=== PATIENT | female | born 1965 | race African-American/Black ===

== ENCOUNTER 2017-12-25 09:41 | Inpatient (IN) | payer MEDICAID, OTHER ==
[~2017-12-25] VITALS: Ht 165.1 cm; Wt 83.5 kg
[2017-12-25] MEDS ORDERED: MAGNESIUM/ALUMINUM HYDROXIDE/SIMETHICONE 30ML UDC PO STA (10:11)
[2017-12-25] MEDS ORDERED: VISCOUS LIDOCAINE 2% 15 ML UDC PO STA (10:11)
[2017-12-25 12:04] LABS: BASOPHILS % 0.2 % (0.0-2.0); EOSINOPHILS % 0.4 % (0.0-5.0); HEMATOCRIT. 45.5 % (36.0-48.0); HEMOGLOBIN. 15.4 g/dL (12.0-16.0); LYMPHOCYTES % 23.1 % (20.0-50.0); MEAN CORPUSCULAR VOLUME 94.3 fL (81.0-99.0); MEAN PLATELET VOLUME 9.2 fl (7.4-10.4); MONOCYTES % 5.1 % (2.0-8.0); NEUTROPHILS % 71.2 % (40.0-76.0); PLATELET 218 x1000/uL (130-400); RED BLOOD CELL COUNT 4.83 mill/uL (4.2-5.4); RED CELL DISTRIBUTION WIDTH 14.5 % (11.6-14.6)
[2017-12-25 12:05] LABS: CLARITY URINE CLOUDY (CLEAR); COLOR URINE YELLOW (YELLOW); KETONES URINE NEGATIVE (NEGATIVE); LEUKOCYTE ESTERASE URINE NEGATIVE (NEGATIVE); NITRITE URINE NEGATIVE (NEGATIVE); OCCULT BLOOD URINE 3+ (NEGATIVE); PH URINE 7.5 (4.5-8.0); PROTEIN URINE 2+ (NEGATIVE); UROBILINOGEN URINE 0.2 E.U./dL (0.2-1.0)
[2017-12-25 12:15] LABS: CHLORIDE 109 mEq/L (98-107)
[2017-12-25 12:24] LABS: BG BASE EXCESS -7.7 mmol/L (-2.0-2.0); BG CARBOXYHEMOGLOBIN 4.4 % (0.5-1.5); BG DEOXYHEMOGLOBIN 5.1 % (0.0-5.0); BG HCO3 ACT 20.2 mmol/L (22.0-26.0); BG METHEMOGLOBIN 0.1 % (0.0-1.5); BG OXYGEN SATURATION 94.7 % (92.0-98.5); BG OXYHEMOGLOBIN 90.4 % (94.0-97.0); BG PCO2 49.9 mmHg (35.0-45.0); BG PH 7.225 (7.350-7.450); BG PO2 86.1 mmHg (75.0-100.0); BG SAMPLE SITE RIGHT RADIAL; BG VENT MODE NASAL CANNULA
[2017-12-25 12:28] LABS: INR 1.3; PARTIAL THROMBOPLASTIN TIME 27.8 sec (23.4-31.0); PROTHROMBIN TIME 12.7 sec (9.1-11.1)
[2017-12-25 12:29] LABS: ETHANOL BLOOD < 10 mg/dL
[2017-12-25] MEDS ORDERED: NALOXONE HCL 1 MG/ML 2ML VIAL IV ONE (12:30)
[2017-12-25 12:35] LABS: *AMPHETAMINES SCREEN URINE NEGATIVE (NEGATIVE); *BARBITURATES SCREEN URINE NEGATIVE (NEGATIVE); *BENZODIAZEPINES SCREEN URINE NEGATIVE (NEGATIVE); *COCAINE SCREEN URINE PRESUMTIVE POSITIVE (NEGATIVE); CANNABINOID URINE SCREEN NEGATIVE (NEGATIVE); METHADONE URINE SCREEN NEGATIVE (NEGATIVE); OPIATES URINE SCREEN NEGATIVE (NEGATIVE); PHENCYCLIDINE URINE SCREEN NEGATIVE (NEGATIVE)
[2017-12-25] MEDS ORDERED: DEXTROSE 50% WATER 50ML SYRINGE IV ONE ×2 (12:45→12:52)
[2017-12-25 13:03] LABS: D-DIMER > 35.20 mg/L FEU (<0.50)
[2017-12-25] MEDS ORDERED: PROPOFOL 10MG/ML 100ML 100 ML IV ONE (13:25)
[2017-12-25] MEDS: PROPOFOL 10MG/ML 100ML 100 ML IV SCH (13:27)
[2017-12-25 13:54] LABS: BG BASE EXCESS -9.7 mmol/L (-2.0-2.0); BG CARBOXYHEMOGLOBIN 3.3 % (0.5-1.5); BG DEOXYHEMOGLOBIN 1.2 % (0.0-5.0); BG METHEMOGLOBIN 0.4 % (0.0-1.5); BG OXYGEN SATURATION 98.8 % (92.0-98.5); BG OXYHEMOGLOBIN 95.1 % (94.0-97.0); BG PCO2 40.1 mmHg (35.0-45.0); BG PH 7.245 (7.350-7.450); BG SAMPLE SITE RIGHT RADIAL; BG TIDAL VOLUME(mL) 450 mL; BG TOTAL HEMOGLOBIN 16.1 g/dL (12.0-18.0); BG VENT MODE VENT - A/C; BG VENT RATE 14 set
[2017-12-25 14:45] LABS: HEMATOCRIT 45.4 % (36.0-48.0); HEMOGLOBIN 15.4 g/dL (12.0-16.0)
[2017-12-25] MEDS ORDERED: SUCCINYLCHOLINE CHLORIDE 200MG/10ML IV ONE (15:18)
[2017-12-25] MEDS ORDERED: ETOMIDATE 2MG/ML 10ML VIAL IV ONE (15:18)
[2017-12-25] MEDS ORDERED: SODIUM CHLORIDE 0.9% 1,000 ML IV ONE (16:45)
[2017-12-25 20:57] LABS: BASOPHILS % 0.2 % (0.0-2.0); HEMATOCRIT. 47.6 % (36.0-48.0); HEMOGLOBIN. 16.1 g/dL (12.0-16.0); MEAN CORPUSCULAR HEMOGLOBIN 31.8 pg (28.0-32.0); MEAN CORPUSCULAR VOLUME 94.1 fL (81.0-99.0); MEAN PLATELET VOLUME 9.7 fl (7.4-10.4); MONOCYTES % 3.3 % (2.0-8.0); NEUTROPHILS % 84.5 % (40.0-76.0); PLATELET 199 x1000/uL (130-400); RED BLOOD CELL COUNT 5.06 mill/uL (4.2-5.4); RED CELL DISTRIBUTION WIDTH 14.7 % (11.6-14.6)
[2017-12-25] MEDS ORDERED: NOREPINEPHRINE 4 MG in DEXTROSE 5% WATER 250 ML IV PRN (21:15)
[2017-12-25] MEDS ORDERED: ONDANSETRON HCL 4MG/2ML INJ IV PRN (22:00)
[2017-12-25] MEDS ORDERED: VANCOMYCIN 2,000 MG in DEXT 5% WATER 500 ML IV NR (22:15)
[2017-12-25] MEDS ORDERED: MEROPENEM 500 MG in SODIUM CHLORIDE 0.9% 50 ML IV NR (22:15)
[2017-12-25] MEDS ORDERED: DEXTROSE 50% WATER 50ML SYRINGE IV PRN (22:15)
[2017-12-25 22:20] LABS: BG BASE EXCESS -10.4 mmol/L (-2.0-2.0); BG CARBOXYHEMOGLOBIN 0.7 % (0.5-1.5); BG DEOXYHEMOGLOBIN 1.8 % (0.0-5.0); BG FRACTION INSPIRED OXYGEN 50; BG HCO3 ACT 15.5 mmol/L (22.0-26.0); BG METHEMOGLOBIN 0.4 % (0.0-1.5); BG OXYGEN SATURATION 98.2 % (92.0-98.5); BG OXYHEMOGLOBIN 97.1 % (94.0-97.0); BG PCO2 35.1 mmHg (35.0-45.0); BG PH 7.263 (7.350-7.450); BG PO2 134.8 mmHg (75.0-100.0); BG SAMPLE SITE RIGHT BRACHIAL; BG TIDAL VOLUME(mL) 450 mL; BG TOTAL HEMOGLOBIN 17.2 g/dL (12.0-18.0); BG VENT MODE VENT - A/C; BG VENT RATE 14 set
[2017-12-25] MEDS: PANTOPRAZOLE SODIUM 40 MG/VIAL IV SCH (22:48)
[2017-12-26] VITALS (59 sets, daily range): BP systolic 68–121; BP diastolic 50–77
[2017-12-26] MEDS: SODIUM CHLORIDE 0.45% 1,000 ML IV SCH ×2 (00:29→06:39)
[2017-12-26] MEDS ORDERED: PROPOFOL 10MG/ML 100ML 100 ML IV PRN (06:30)
[2017-12-26 06:49] LABS: HEPATITIS B SURFACE ANTIGEN NEGATIVE
[2017-12-26 07:17] LABS: HEPATITIS B CORE AB IGM NEGATIVE
[2017-12-26 07:18] LABS: HEPATITIS A AB IGM NEGATIVE (NEGATIVE)
[2017-12-26] MEDS: INSULIN LISPRO 100 UNITS/ML SUBCUT SCH ×3 (07:28→18:03)
[2017-12-26] MEDS: BLOOD SUGAR DIAGNOSTIC STRIP TEST SCH ×3 (07:28→17:59)
[2017-12-26] MEDS ORDERED: BLOOD SUGAR DIAGNOSTIC STRIP TEST SCH (07:50)
[2017-12-26] MEDS: PROPOFOL 10MG/ML 100ML 100 ML IV SCH (08:05)
[2017-12-26] MEDS: PANTOPRAZOLE SODIUM 40 MG/VIAL IV SCH ×2 (08:12→21:23)
[2017-12-26] MEDS ORDERED: INSULIN LISPRO 100 UNITS/ML SUBCUT SCH (08:20)
[2017-12-26 08:53] LABS: BASOPHILS % 0.1 % (0.0-2.0); EOSINOPHILS % 0.1 % (0.0-5.0); HEMATOCRIT. 45.7 % (36.0-48.0); HEMOGLOBIN. 15.5 g/dL (12.0-16.0); LYMPHOCYTES % 10.9 % (20.0-50.0); MEAN CORPUSCULAR HEMOGLOBIN 32.4 pg (28.0-32.0); MEAN CORPUSCULAR VOLUME 95.6 fL (81.0-99.0); MEAN PLATELET VOLUME 10.5 fl (7.4-10.4); NEUTROPHILS % 83.9 % (40.0-76.0); PLATELET 169 x1000/uL (130-400); RED BLOOD CELL COUNT 4.78 mill/uL (4.2-5.4); RED CELL DISTRIBUTION WIDTH 15.4 % (11.6-14.6)
[2017-12-26 09:36] LABS: PHOSPHORUS 6.7 mg/dL (2.5-4.9)
[2017-12-26 09:50] LABS: BG BASE EXCESS -12.6 mmol/L (-2.0-2.0); BG CARBOXYHEMOGLOBIN 0.7 % (0.5-1.5); BG DEOXYHEMOGLOBIN 3.3 % (0.0-5.0); BG FRACTION INSPIRED OXYGEN 50; BG HCO3 ACT 13.2 mmol/L (22.0-26.0); BG METHEMOGLOBIN 0.4 % (0.0-1.5); BG OXYGEN SATURATION 96.7 % (92.0-98.5); BG OXYHEMOGLOBIN 95.6 % (94.0-97.0); BG PH 7.247 (7.350-7.450); BG PO2 141.1 mmHg (75.0-100.0); BG SAMPLE SITE RIGHT BRACHIAL; BG TIDAL VOLUME(mL) 550 mL; BG TOTAL HEMOGLOBIN 15.8 g/dL (12.0-18.0); BG VENT MODE VENT - A/C; BG VENT RATE 16 set
[2017-12-26] MEDS ORDERED: MEROPENEM 500 MG in SODIUM CHLORIDE 0.9% 50 ML IV SCH (10:00)
[2017-12-26 10:03] LABS: CREATINE KINASE MB FRACTION 373.9 ng/mL (0.5-3.6)
[2017-12-26] MEDS ORDERED: SODIUM BICARBONATE 8.4% 1 MEQ/ML 50ML SYR IV SCH (10:15)
[2017-12-26] MEDS: SODIUM BICARBONATE 150 MEQ in DEXTROSE 5% WATER 1,000 ML IV SCH ×2 (10:38→18:34)
[2017-12-26] MEDS: NOREPINEPHRINE 16 MG in DEXT 5% WATER 484 ML IV PRN ×2 (10:39→22:03)
[2017-12-26] MEDS ORDERED: MONT10TA21 PO (12:40)
[2017-12-26] MEDS ORDERED: NAPR375T5 PO (12:40)
[2017-12-26] MEDS ORDERED: MAX25 PO (12:40)
[2017-12-26] MEDS ORDERED: AMLO10TA80 PO (12:40)
[2017-12-26 16:13] LABS: BG BASE EXCESS -4.7 mmol/L (-2.0-2.0); BG CARBOXYHEMOGLOBIN 0.2 % (0.5-1.5); BG DEOXYHEMOGLOBIN 2.2 % (0.0-5.0); BG FRACTION INSPIRED OXYGEN 50; BG HCO3 ACT 16.4 mmol/L (22.0-26.0); BG METHEMOGLOBIN 0.2 % (0.0-1.5); BG OXYGEN SATURATION 97.8 % (92.0-98.5); BG OXYHEMOGLOBIN 97.4 % (94.0-97.0); BG PCO2 21.9 mmHg (35.0-45.0); BG PH 7.492 (7.350-7.450); BG SAMPLE SITE RIGHT BRACHIAL; BG TIDAL VOLUME(mL) 550 mL; BG TOTAL HEMOGLOBIN 13.8 g/dL (12.0-18.0); BG VENT MODE VENT - A/C; BG VENT RATE 22 set
[2017-12-26 17:05] LABS: HEMATOCRIT 39.4 % (36.0-48.0); HEMOGLOBIN 13.7 g/dL (12.0-16.0)
[2017-12-26] MEDS ORDERED: VANCOMYCIN 1 G PREMIX 200 ML IV SCH (18:00)
[2017-12-26] MEDS: PROPOFOL 10MG/ML 100ML 100 ML IV PRN (18:34)
[2017-12-26] MEDS: MEROPENEM 500 MG in SODIUM CHLORIDE 0.9% 50 ML IV SCH (22:24)
[2017-12-27] VITALS (95 sets, daily range): BP systolic 95–146; BP diastolic 67–99
[2017-12-27] MEDS: BLOOD SUGAR DIAGNOSTIC STRIP TEST SCH ×4 (00:30→17:29)
[2017-12-27] MEDS: INSULIN LISPRO 100 UNITS/ML SUBCUT SCH ×4 (00:37→17:29)
[2017-12-27] MEDS: ACETAMINOPHEN 325MG TABLET GT PRN (00:38)
[2017-12-27] MEDS: SODIUM BICARBONATE 150 MEQ in DEXTROSE 5% WATER 1,000 ML IV SCH (02:38)
[2017-12-27 06:47] LABS: AMMONIA 66 uMol/L (<32)
[2017-12-27 06:52] LABS: CHLORIDE 95 mEq/L (98-107)
[2017-12-27 07:44] LABS: PHOSPHORUS 4.8 mg/dL (2.5-4.9)
[2017-12-27 07:50] LABS: CREATINE KINASE 9741 IU/L (26-192)
[2017-12-27 08:02] LABS: BG BASE EXCESS 0.8 mmol/L (-2.0-2.0); BG CARBOXYHEMOGLOBIN 0.3 % (0.5-1.5); BG DEOXYHEMOGLOBIN 3.9 % (0.0-5.0); BG FRACTION INSPIRED OXYGEN 50; BG HCO3 ACT 20.6 mmol/L (22.0-26.0); BG METHEMOGLOBIN 0.3 % (0.0-1.5); BG OXYGEN SATURATION 96.1 % (92.0-98.5); BG OXYHEMOGLOBIN 95.5 % (94.0-97.0); BG PCO2 21.1 mmHg (35.0-45.0); BG PH 7.607 (7.350-7.450); BG PO2 92.6 mmHg (75.0-100.0); BG SAMPLE SITE RIGHT BRACHIAL; BG TIDAL VOLUME(mL) 550 mL; BG TOTAL HEMOGLOBIN 12.1 g/dL (12.0-18.0); BG VENT MODE VENT - A/C; BG VENT RATE 22 set
[2017-12-27] MEDS: PANTOPRAZOLE SODIUM 40 MG/VIAL IV SCH ×2 (08:20→20:48)
[2017-12-27] MEDS: NOREPINEPHRINE 16 MG in DEXT 5% WATER 484 ML IV PRN (08:20)
[2017-12-27] MEDS ORDERED: ALBUMIN HUMAN 25GM/100ML (25%) IV SCH (08:30)
[2017-12-27] MEDS: SODIUM CHLORIDE 0.9% 1,000 ML IV SCH ×2 (08:35→17:33)
[2017-12-27] MEDS: PROPOFOL 10MG/ML 100ML 100 ML IV PRN ×2 (08:37→19:07)
[2017-12-27 08:55] LABS: HEMATOCRIT. 36.6 % (36.0-48.0); HEMOGLOBIN. 12.8 g/dL (12.0-16.0); MEAN PLATELET VOLUME 10.1 fl (7.4-10.4); PLATELET 54 x1000/uL (130-400); RED BLOOD CELL COUNT 4.02 mill/uL (4.2-5.4); RED CELL DISTRIBUTION WIDTH 14.3 % (11.6-14.6)
[2017-12-27 08:57] LABS: MEAN CORPUSCULAR VOLUME 91.2 fL (81.0-99.0)
[2017-12-27] MEDS ORDERED: MAGNESIUM SULFATE 2 GM in SODIUM CHLORIDE 0.9% 50 ML IV SCH ×2 (10:00→12:00)
[2017-12-27] MEDS: MEROPENEM 500 MG in SODIUM CHLORIDE 0.9% 50 ML IV SCH (11:02)
[2017-12-27 11:04] LABS: PLATELET ESTIMATE MARKEDLY DECREASED
[2017-12-27 12:05] LABS: BG BASE EXCESS 0.2 mmol/L (-2.0-2.0); BG CARBOXYHEMOGLOBIN 0.2 % (0.5-1.5); BG OXYHEMOGLOBIN 97.8 % (94.0-97.0); BG PH 7.488 (7.350-7.450); BG PO2 160.4 mmHg (75.0-100.0); BG SAMPLE SITE RIGHT BRACHIAL; BG TIDAL VOLUME(mL) 500 mL; BG TOTAL HEMOGLOBIN 11.2 g/dL (12.0-18.0); BG VENT MODE VENT - A/C; BG VENT RATE 14 set
[2017-12-27 15:50] LABS: HEMATOCRIT 35.5 % (36.0-48.0); HEMOGLOBIN 12.6 g/dL (12.0-16.0)
[2017-12-27 16:21] LABS: T4 FREE 1.18 ng/dL (0.76-1.46)
[2017-12-27 17:16] LABS: FOLIC ACID (FOLATE) SERUM > 20.00 ng/mL (>5.38); VITAMIN B12 SERUM > 2000.0 pg/mL (211-911)
[2017-12-27 17:24] LABS: AMMONIA 32 uMol/L (<32)
[2017-12-27 23:02] LABS: HEMATOCRIT 35.4 % (36.0-48.0); HEMOGLOBIN 12.1 g/dL (12.0-16.0)
[2017-12-28] VITALS (79 sets, daily range): BP systolic 88–132; BP diastolic 50–85
[2017-12-28] MEDS: PROPOFOL 10MG/ML 100ML 100 ML IV PRN ×3 (00:02→16:29)
[2017-12-28] MEDS: BLOOD SUGAR DIAGNOSTIC STRIP TEST SCH ×5 (00:18→23:57)
[2017-12-28] MEDS: SODIUM CHLORIDE 0.9% 1,000 ML IV SCH (05:43)
[2017-12-28] MEDS: INSULIN LISPRO 100 UNITS/ML SUBCUT SCH ×5 (06:00→23:57)
[2017-12-28 07:22] LABS: HEMATOCRIT. 34.1 % (36.0-48.0); HEMOGLOBIN. 11.9 g/dL (12.0-16.0); MEAN CORPUSCULAR HEMOGLOBIN 32.6 pg (28.0-32.0); MEAN CORPUSCULAR VOLUME 93.5 fL (81.0-99.0); RED BLOOD CELL COUNT 3.65 mill/uL (4.2-5.4); RED CELL DISTRIBUTION WIDTH 14.4 % (11.6-14.6)
[2017-12-28 07:42] LABS: PLATELET 30 x1000/uL (130-400)
[2017-12-28 08:07] LABS: BG BASE EXCESS -2.2 mmol/L (-2.0-2.0); BG CARBOXYHEMOGLOBIN 0.2 % (0.5-1.5); BG HCO3 ACT 22.1 mmol/L (22.0-26.0); BG OXYHEMOGLOBIN 97.8 % (94.0-97.0); BG PH 7.405 (7.350-7.450); BG PO2 172.9 mmHg (75.0-100.0); BG SAMPLE SITE RIGHT BRACHIAL; BG TIDAL VOLUME(mL) 500 mL; BG VENT MODE VENT - A/C; BG VENT RATE 14 set
[2017-12-28 08:22] LABS: HIV SCREEN 4G Non Reactive (Non Reactive)
[2017-12-28] MEDS: MEROPENEM 500 MG in SODIUM CHLORIDE 0.9% 50 ML IV SCH ×3 (08:46→09:18)
[2017-12-28] MEDS: PANTOPRAZOLE SODIUM 40 MG/VIAL IV SCH ×2 (08:48→20:53)
[2017-12-28] MEDS: IPRATROPIUM/ALBUTEROL 0.5-3(2.5)MG/3ML NEB INH PRN ×2 (08:50→20:10)
[2017-12-28] MEDS: DEXT 5%/0.9% NACL 1,000 ML IV SCH (08:58)
[2017-12-28 09:11] LABS: AMMONIA 64 uMol/L (<32)
[2017-12-28 11:02] LABS: CHLORIDE 102 mEq/L (98-107)
[2017-12-28 11:21] LABS: PHOSPHORUS 7.5 mg/dL (2.5-4.9)
[2017-12-28 11:39] LABS: CREATINE KINASE 5532 IU/L (26-192)
[2017-12-28 11:49] LABS: PLATELET ESTIMATE MARKEDLY DECREASED
[2017-12-28] MEDS: PETROLATUM,WHITE OPHTH OINT 3.5GM BOTHEYE SCH (20:54)
[2017-12-29] VITALS (42 sets, daily range): BP systolic 79–144; BP diastolic 57–112
[2017-12-29] MEDS: PROPOFOL 10MG/ML 100ML 100 ML IV PRN ×3 (00:54→23:11)
[2017-12-29] MEDS: IPRATROPIUM/ALBUTEROL 0.5-3(2.5)MG/3ML NEB INH PRN ×2 (04:14)
[2017-12-29] MEDS: DEXT 5%/0.9% NACL 1,000 ML IV SCH (04:24)
[2017-12-29 05:49] LABS: HEMATOCRIT. 31.6 % (36.0-48.0); HEMOGLOBIN. 10.9 g/dL (12.0-16.0); MEAN CORPUSCULAR HEMOGLOBIN 31.9 pg (28.0-32.0); MEAN CORPUSCULAR VOLUME 92.5 fL (81.0-99.0); MEAN PLATELET VOLUME 10.3 fl (7.4-10.4); RED BLOOD CELL COUNT 3.42 mill/uL (4.2-5.4); RED CELL DISTRIBUTION WIDTH 14.4 % (11.6-14.6)
[2017-12-29 06:02] LABS: CHLORIDE 106 mEq/L (98-107)
[2017-12-29 06:12] LABS: PLATELET 33 x1000/uL (130-400)
[2017-12-29 06:22] LABS: PHOSPHORUS 6.6 mg/dL (2.5-4.9)
[2017-12-29] MEDS: INSULIN LISPRO 100 UNITS/ML SUBCUT SCH ×3 (08:22→18:00)
[2017-12-29] MEDS: BLOOD SUGAR DIAGNOSTIC STRIP TEST SCH ×3 (08:22→18:37)
[2017-12-29 09:08] LABS: PLATELET ESTIMATE MARKEDLY DECREASED
[2017-12-29] MEDS: PANTOPRAZOLE SODIUM 40 MG/VIAL IV SCH ×2 (09:45→21:18)
[2017-12-29] MEDS: MEROPENEM 500 MG in SODIUM CHLORIDE 0.9% 50 ML IV SCH (09:45)
[2017-12-29] MEDS: PETROLATUM,WHITE OPHTH OINT 3.5GM BOTHEYE SCH ×2 (09:46→21:18)
[2017-12-29] MEDS ORDERED: VANCOMYCIN 1 G PREMIX 200 ML IV SCH (12:00)
[2017-12-29] MEDS ORDERED: HEPARIN SODIUM 1,000 UNIT/1ML VIAL IV SCH (15:15)
[2017-12-29] MEDS: ACETAMINOPHEN 325MG TABLET GT PRN (21:18)
[2017-12-30] VITALS (11 sets, daily range): BP systolic 99–132; BP diastolic 48–89
[2017-12-30] MEDS: BLOOD SUGAR DIAGNOSTIC STRIP TEST SCH
[2017-12-30] MEDS: INSULIN LISPRO 100 UNITS/ML SUBCUT SCH
[2017-12-30] MEDS: DEXT 5%/0.9% NACL 1,000 ML IV SCH (01:35)
[2017-12-30] MEDS: PROPOFOL 10MG/ML 100ML 100 ML IV PRN (02:55)
== END 2017-12-30 05:00 | disposition short-term general hospital (02) | DRG 812 ==
LOC: EDSEX 09:41 → ER 09:41 → CANBEDREQ 10:42 → CVICU 13:21 → EDBEDREQ 13:32 → EDBEDREQSVC 13:32 → ENRESERV 12-26 02:57
PROVIDERS: ADMIT Internal Medicine; ATTEND Internal Medicine
PROC: 5A1955Z Respiratory Ventilation, Greater than 96 Consecutive Hours (ICD-10-PCS; principal; 2017-12-25)
PROC: 0BH17EZ Insertion of Endotracheal Airway into Trachea, Via Natural or Artificial Opening (ICD-10-PCS; 2017-12-25)
PROC: 06HM33Z Insertion of Infusion Device into Right Femoral Vein, Percutaneous Approach (ICD-10-PCS; 2017-12-25)
PROC: 06HN33Z Insertion of Infusion Device into Left Femoral Vein, Percutaneous Approach (ICD-10-PCS; 2017-12-26)
PROC: B54CZZA Ultrasonography of Left Lower Extremity Veins, Guidance (ICD-10-PCS; 2017-12-26)
PROC: 5A1D70Z Performance of Urinary Filtration, Intermittent, Less than 6 Hours Per Day (ICD-10-PCS; 2017-12-27)
PROC: 5A1D70Z Performance of Urinary Filtration, Intermittent, Less than 6 Hours Per Day (ICD-10-PCS; 2017-12-28)
PROC: 5A1D70Z Performance of Urinary Filtration, Intermittent, Less than 6 Hours Per Day (ICD-10-PCS; 2017-12-29)
DX: T40.2X1A Poisoning by other opioids, accidental (unintentional), initial encounter (principal); J96.00 Acute respiratory failure, unspecified whether with hypoxia or hypercapnia; K72.00 Acute and subacute hepatic failure without coma; N17.0 Acute kidney failure with tubular necrosis; R65.21 Severe sepsis with septic shock; G92 Toxic encephalopathy; Z99.11 Dependence on respirator [ventilator] status; A41.9 Sepsis, unspecified organism; J18.9 Pneumonia, unspecified organism; R18.8 Other ascites; K57.91 Diverticulosis of intestine, part unspecified, without perforation or abscess with bleeding; F11.10 Opioid abuse, uncomplicated; I10 Essential (primary) hypertension; K25.9 Gastric ulcer, unspecified as acute or chronic, without hemorrhage or perforation; J44.0 Chronic obstructive pulmonary disease with (acute) lower respiratory infection; N17.9 Acute kidney failure, unspecified; J44.1 Chronic obstructive pulmonary disease with (acute) exacerbation; F17.210 Nicotine dependence, cigarettes, uncomplicated; K29.70 Gastritis, unspecified, without bleeding; N39.0 Urinary tract infection, site not specified; F14.129 Cocaine abuse with intoxication, unspecified; M62.82 Rhabdomyolysis; Z82.49 Family history of ischemic heart disease and other diseases of the circulatory system; Z86.73 Personal history of transient ischemic attack (TIA), and cerebral infarction without residual deficits; Y92.89 Other specified places as the place of occurrence of the external cause
CPT/HCPCS: 31500; 36415; 36430; 36569; 36600; 71045; 74176; 76700; 76937; 78278; 78580; 80048; 80076; 80202; 80305; 80307; 80329; 82140; 82150; 82248; 82270; 82375; 82550; 82553; 82607; 82746; 82805; 82962; 83036; 83605; 83735; 83880; 84100; 84439; 84443; 84478; 84481; 84484; 85014; 85018; 85379; 86705; 86709; 86803; 86850; 86900; 87015; 87045; 87070; 87340; 87389; 87427; 87449; 89055; 93005; 93306; 93970; 94002; 94003; 96365; 99291; A9560; C1752; C1769; C9113; G0482; J0330; J1644; J1815; J2185; J2310; J2704; J3370; J3475; J3490; J7030; J7040; J7042; J7060; J7070; J7620; P9047